=== PATIENT | female | born 1980 | race Caucasian/White ===

== ENCOUNTER 2017-10-27 17:00 | Outpatient (CLI) | payer MEDICAID, SELFPAY ==
[2017-10-27 17:36] VITALS: BMI 22.0
[2017-10-27] MEDS: Lactated Ringers 500 ML 999 ML IV (17:50)
[2017-10-27] MEDS: Betamethasone/Betamethasone 30 MG/5 ML Vial 12.5 MG IM (17:51)
[2017-10-27 18:21] LABS: Hematocrit 38.7 % (37-47); Hemoglobin 13.2 g/dl (12.0-15.0); Mean Corp Hgb Conc 34.1 g/gl (32-36); Mean Corpuscular Hgb 30.4 pg (27.0-32.0); Mean Corpuscular Volume 89.2 fL (81-99); Mean Platelet Vol. 10.7 fl (6.2-12.0); Platelet Count 184 K/mm3 (150-450); RBC Distribution Width CV 13.1 % (11.6-14.6); RBC Distribution Width SD 42.4 fl (35.1-43.9); Red Blood Count 4.34 M/mm3 (4.2-5.4); White Blood Count 10.2 K/mm3 (4.4-11.0)
--- NOTE | 2017-10-27 18:21 | OB.TRI.PN ---
Progress Notes Date of Service: 10/27/17 Progress Note: Presented to office with contractions that have been irregular since Friday. NST reactive in office with contractions every 7-14minutes. Cervical exam 1cm/40%/-4. To L&D for observation and rule out labor. Upon arrival to L&D patient stated contractions had slowed down. Worked today and last IC yesterday. Denies any vaginal bleeding or leakage of fluid. O: VE 1cm/40%/-4 1.5hr after last exam FHT 140, moderate variability accels, no decels, Category 1 TOCO: Irregular, 2 contractions in 2 minutes on monitor A: False Labor Category 1 FHT P: 1)1liter LR bolus 2) U/A and CBC 3) 1 dose of Celestone and repeat dose in 24 hr 4) FFN collected in office and sent to lab 5) Consulted and agrees with plan. Mindi Atkins CNM.
[2017-10-27 18:22] LABS: Scan Indicated on CBC? Y/N NO
--- NOTE | 2017-10-27 18:25 | OB.TRI.PN_ITS ---
Progress Notes Date of Service: 10/27/17 Progress Note: Presented to office with contractions that have been irregular since Friday. NST reactive in office with contractions every 7-14minutes. Cervical exam 1cm/40 %/-4. To L&D for observation and rule out labor. Upon arrival to L&D patient stated contractions had slowed down. Worked today and last IC yesterday. Denies any vaginal bleeding or leakage of fluid. O: VE 1cm/40%/-4 1.5hr after last exam FHT 140, moderate variability accels, no decels, Category 1 TOCO: Irregular, 2 contractions in 2 minutes on monitor A: False Labor Category 1 FHT P: 1)1liter LR bolus 2) U/A and CBC 3) 1 dose of Celestone and repeat dose in 24 hr 4) FFN collected in office and sent to lab 5) Consulted and agrees with plan. Mindi Atkins CNM.
[2017-10-27 19:13] LABS: Mucous, Urine 0 SEEN /hpf (<or=2+)
[2017-10-27 19:14] LABS: Color, Urine Yellow (Yellow); Glucose, Dipstick Normal (Normal); Ketone-Dipstick Negative (Negative); Leukocyte Esterase-Dipstick 25 /ul (Negative); Nitrite-Dipstick Negative (Negative); Occult Blood-Urine 50 /ul (Negative); Protein-Dipstick Negative (Negative); Urine Bilirubin Dipstick Negative (Negative); Urine Clarity Cloudy (Clear); Urine Urobilinogen 1 mg/dl (Normal)
[2017-10-27 19:32] LABS: Squamous Epithelial Cells - UA 0-5 SEEN /hpf (5-10)
[2017-10-27 19:33] LABS: Fine Granular Cast- Urine 0-5 SEEN /lpf (0-5)
[2017-10-27 19:34] LABS: Bacteria RARE /hpf (None Seen); Red Blood Cells-Urine 10-25 SEEN /hpf (0-5); White Blood Cells 0-5 SEEN /hpf (0-5)
[2017-10-27 19:36] LABS: Amorphous Sediment 1+
[2017-10-27] MEDS: Lactated Ringers 1,000 ML 150 ML IV (19:45)
[2017-10-27] MEDS: Terbutaline 1 MG/ML Vial 0.25 MG SC (23:45)
[2017-10-28] MEDS: NIFEdipine 10 MG Capsule PO ×2 (07:33→16:05)
[2017-10-28] MEDS: Acetaminophen 500 MG Tablet 1000 MG PO ×2 (08:44→17:18)
[2017-10-28] MEDS: Betamethasone/Betamethasone 30 MG/5 ML Vial 12 MG IM (17:40)
== END 2017-10-28 17:45 | disposition home or self-care (01) ==
LOC: WPOUT 17:10 → WP 17:11
PROVIDERS: Visit Provider Advanced Practice Midwife
DX: O47.9 False labor, unspecified (principal); Z3A.00 Weeks of gestation of pregnancy not specified
CPT/HCPCS: 96360; 96361 ×3; 59025; 59050; 81001; 85027; 96372; 99218; J7120; G0378; J0702

== ENCOUNTER → 2017-10-27 18:28 | Outpatient (CLI) | payer MEDICAID, SELFPAY ==
[2017-10-27 19:02] LABS: Fetal Fibronectin POSITIVE; Record Kit Lot#, fFN J7025
--- NOTE | 2017-10-28 18:13 | PCM.PN.BLA ---
Progress Note Patient w/ mild irreg ctxs today. No repeat cervical exam at this time due to not wanting to increase contractions and has been clinically stable all day. Second dose of betamethasone given. D/jassi home w/ f/u tomorrow in our office for MFM consult due to threatened labor in high risk multigravida at 27 weeks. Advanced maternal age. FHTs baseline-135 bpm, moderate variability, + accels 10x 10 bpm No decelerations, not reactive but appropriate for gestational age and category 1
== END ==
PROVIDERS: Visit Provider Advanced Practice Midwife
DX: O60.00 Preterm labor without delivery, unspecified trimester (principal); Z3A.00 Weeks of gestation of pregnancy not specified; O47.9 False labor, unspecified
CPT/HCPCS: 81001; 82731; 85027; J7120; J0702

== ENCOUNTER 2017-12-29 16:35 | Inpatient (IN) | payer MEDICAID, SELFPAY ==
[2017-12-29 16:54] VITALS: BMI 23.8
[2017-12-29] MEDS: Oxytocin 10 UNITS/ML Vial IM (16:55)
--- NOTE | 2017-12-29 17:07 | PCM.HP.OB ---
- Problem List (1) Active labor Status: Acute Qualifiers: Fetus number: single or unspecified fetus Qualified Code(s): O60.10X0 - labor with delivery, unspecified trimester, not applicable or unspecified (2) Precipitous delivery Status: Acute (3) Normal spontaneous vaginal delivery Status: Acute History Date of Admission: 12/29/17 Final MARCO: 01/24/18 Final MARCO Source: US <20 weeks Gestational age: 36 Weeks and 2 Days History of this : 37 year old female at 36w2d by 1st trimester U/S. Patient presented to L&D with SROM at 1545. Arrived on unit at 7cm with very quick progression to complete and delivery of female infant. OB Hx: Unplanned Advanced Maternal Age Allergies No Known Allergies Allergy (Verified 10/27/17 17:36) Current Medications Acetaminophen (Tylenol) 1,000 mg PO Q8H PRN PRN PRN Reason: MILD PAIN (-11/01)/Temp>99.6F Bisacodyl (Dulcolax) 10 mg RECTAL UD PRN PRN Reason: If no BM Dibucaine (Dibucaine) 1 applic TOPICAL TID PRN PRN; Protocol PRN Reason: Discomfort Hydrocortisone (Hytone) 1 applic TOPICAL TID PRN PRN; Protocol PRN Reason: Discomfort Lactated Ringer's () 1,000 mls @ 0 mls/hr IV .Q0M MAGALY PRN Reason: KVO Methylergonovine Maleate (Methergine) 0.2 mg IM X1 PRN PRN Reason: Excess bleeding/uterine atony Naproxen (Naprosyn) 250 - 500 mg PO Q8H PRN PRN PRN Reason: MILD PAIN (1-310) Ondansetron HCl (Zofran) 4 mg IV Q4H PRN PRN PRN Reason: Nausea Oxytocin (Pitocin) 10 units IM X1 MAGALY Senna/Docusate Sodium (Senokot-S, Katharine-Colace) 1 - 2 tablet PO DAILY PRN PRN PRN Reason: Constipation Simethicone (Mylicon) 80 mg PO PCHS PRN PRN Reason: Indigestion/Stomach pain Sodium Chloride () 5 - 15 ml IV UD PRN PRN Reason: SALINE FLUSH Alcohol: None Drug Use: none Number of Fetus(es): 1 Physical Exam Vitals: RPR negative Rubella Immune General: Alert, Oriented x3, No apparent distress Presentation: Cephalic Assessment/Plan Active and Suspected Problems Active labor (Acute) Precipitous delivery (Acute) Normal spontaneous vaginal delivery (Acute) A: Active Labor Precipitous Vaginal Delivery P: 1) Upon arrival patient delivered precipitously. See Vaginal delivery note 2) Admit to L&D. CBC, blood type and screen Mindi Atkins CNM
[2017-12-29 17:22] LABS: Hematocrit 42.8 % (37-47); Hemoglobin 14.5 g/dl (12.0-15.0); Mean Corp Hgb Conc 33.9 g/gl (32-36); Mean Corpuscular Volume 88.6 fL (81-99); Mean Platelet Vol. 11.4 fl (6.2-12.0); Platelet Count 167 K/mm3 (150-450); RBC Distribution Width CV 13.6 % (11.6-14.6); RBC Distribution Width SD 44.2 fl (35.1-43.9); Red Blood Count 4.83 M/mm3 (4.2-5.4); White Blood Count 12.6 K/mm3 (4.4-11.0)
--- NOTE | 2017-12-29 17:24 | PCM.OB.VAG ---
- Problem List (1) Active labor Status: Acute Qualifiers: Fetus number: single or unspecified fetus Qualified Code(s): O60.10X0 - labor with delivery, unspecified trimester, not applicable or unspecified (2) Precipitous delivery Status: Acute (3) Normal spontaneous vaginal delivery Status: Acute Vaginal Delivery Maternal Presentation: Active Labor, Spontaneous Rupture of Membranes Amniotic Membrane Rupture Type: Spontaneous Rupture of Membrane time: 1545 Amniotic Fluid Description: Clear Final MARCO: 01/24/18 Gestational age: 36 Weeks and 2 Days Date of Procedure: 12/29/17 Pre-Operative Diagnosis: Active Labor Post-Operative Diagnosis: Normal Spontaneous Vaginal Delivery Surgery/ Procedure Performed: Spontaneous Vaginal Delivery Type of Anesthesia: None Description of Procedure: Notified at 1645 that patient delivered vaginally. Patient arrived at 1635 and delivered at 1645. Patient with SROM at home at 1545. Upon arrival patient was 7cm and quickly progressed to complete with . Precipitous of viable female over intact perineum, delivered by VAISHALI Caceres Apgars 8,9. at 36w2d, arrived shortly after delivery. I arrived after delivery, on maternal chest with mother attempting to breastfeed. Umbilical cord clamped and cut by nursing staff. Pitocin 10 units IM given once, no IV access. Placenta delivered with gentle pressure/counter traction, intact, 3 vessel cord. Fundus firm and hemostasis achieved. EBL 200ml. Perineum inspected and revealed 3 vessel cord. Mother and baby stable. initiated. notified of delivery. Presentation: Vertex Placental Delivery Description: Spontaneous Placenta Disposition: [facility] Cord Vessel Description: 3 Vessels Cord Entanglement: None Estimated Blood Loss: 200ml A gender: Female (1 minute): 8 (5 minute): 9 Episiotomy Description: None Laceration: None Medications given after delivery: - - IM Pitocin
[2017-12-29 17:25] LABS: Scan Indicated on CBC? Y/N NO
--- NOTE | 2017-12-29 17:31 | OP.PCM_ITS ---
- Problem List (1) Active labor Status: Acute Qualifiers: Fetus number: single or unspecified fetus Qualified Code(s): O60.10X0 - labor with delivery, unspecified trimester, not applicable or unspecified (2) Precipitous delivery Status: Acute (3) Normal spontaneous vaginal delivery Status: Acute Vaginal Delivery Maternal Presentation: Active Labor, Spontaneous Rupture of Membranes Amniotic Membrane Rupture Type: Spontaneous Rupture of Membrane time: 1545 Amniotic Fluid Description: Clear Final MARCO: 01/24/18 Gestational age: 36 Weeks and 2 Days Date of Procedure: 12/29/17 Pre-Operative Diagnosis: Active Labor Post-Operative Diagnosis: Normal Spontaneous Vaginal Delivery Surgery/ Procedure Performed: Spontaneous Vaginal Delivery Type of Anesthesia: None Description of Procedure: Notified at 1645 that patient delivered vaginally. Patient arrived at 1635 and delivered at 1645. Patient with SROM at home at 1545. Upon arrival patient was 7cm and quickly progressed to complete with . Precipitous of viable female over intact perineum, delivered by VAISHALI Caceres Apgars 8,9. at 36w2d, arrived shortly after delivery. I arrived after delivery, on maternal chest with mother attempting to breastfeed. Umbilical cord clamped and cut by nursing staff. Pitocin 10 units IM given once , no IV access. Placenta delivered with gentle pressure/counter traction, intact , 3 vessel cord. Fundus firm and hemostasis achieved. EBL 200ml. Perineum inspected and revealed 3 vessel cord. Mother and baby stable. initiated. notified of delivery. Presentation: Vertex Placental Delivery Description: Spontaneous Placenta Disposition: [facility] Cord Vessel Description: 3 Vessels Cord Entanglement: None Estimated Blood Loss: 200ml A gender: Female (1 minute): 8 (5 minute): 9 Episiotomy Description: None Laceration: None Medications given after delivery: - - IM Pitocin
[2017-12-29] MEDS: Naproxen 250 MG Tablet PO (18:05)
[2017-12-29 19:48] VITALS: BP 133/83; PULSE 64; RESP 18; TEMP 36.6; O2SAT 97
[2017-12-30 00:30] VITALS: BP 125/79; PULSE 72; RESP 16; TEMP 36.7; O2SAT 99
[2017-12-30 04:05] VITALS: BP 113/49; PULSE 85; RESP 16; TEMP 36.6; O2SAT 97
[2017-12-30 08:00] VITALS: BP 119/87; PULSE 75; RESP 16; TEMP 36.1
[2017-12-30 11:43] VITALS: BP 113/78; PULSE 81; RESP 16; TEMP 36.9
--- NOTE | 2017-12-30 12:25 | PCM.PN.OB ---
Patient Problems: Active and Suspected Problems Active labor (Acute) Precipitous delivery (Acute) Normal spontaneous vaginal delivery (Acute) Subjective: Doing well per patient and nursing staff. Ambulating and taking PO without difficulty. Voiding and passing flatus. without difficulty. denies any headache, visual changes, chest pain, shortness of breath, leg pain, increased vaginal bleeding or clots. Planning D/C home tomorrow. - Physical Exam General: Alert, Oriented x3, Cooperative Lungs: Clear to auscultation, Normal air movement, No rhonchi, No wheeze Cardiovascular: Regular rate, Regular Rhythm, No murmurs Abdomen: Bowel Sounds Present, Soft, Non Tender, - - Fundus firm 2 below U Extremities: No edema, - - Briana's negative bilaterally Psych/Mental Status: Normal Affect, Appropriate Vital Signs Temp Pulse Resp BP Pulse Ox 98.4 F 81 16 113/78 97 12/30/17 11:43 12/30/17 11:43 12/30/17 11:43 12/30/17 11:43 12/30/17 04:05 Oxygen Delivery Method Room Air Weight: 134 lb 8 oz Body Mass Index (BMI) 23.8 Intake and Output for Last 24 Hours 12/28/17 12/29/17 12/30/17 23:59 23:59 23:59 Intake Total 200 / 200 Output Total 500 / 500 Balance -300 / -300 Laboratory Tests Past 24 Hrs 12/29/17 12/29/17 17:10 17:10 WBC 12.6 H RBC 4.83 Hgb 14.5 Hct 42.8 MCV 88.6 MCH 30.0 MCHC 33.9 RDW 13.6 RDW Differential 44.2 H Plt Count 167 MPV 11.4 Blood Type A POSITIVE Antibody Screen NEGATIVE Medical Necessity - Tobacco Use Smoking Status: Never smoker Assessment/Plan Active and Suspected Problems Active labor (Acute) Precipitous delivery (Acute) Normal spontaneous vaginal delivery (Acute) A: PPD #1 , precipitous P: 1) Routine PP care. 2) Planning D/C home tomorrow
--- NOTE | 2017-12-30 12:30 | DCINST_ITS ---
Discharge Diet: No Restrictions Discharge Activity: Return to Normal Activity, May not drive while taking narcotic pain medications., May Shower May resume sexual activity in: 6-8 weeks Weight Bearing Status: Weight bearing as tolerated Call your doctor if your incision/area has: Continuous Slow Oozing, Sudden Increased Bleeding, Increased Pain/ Swelling, Increased Redness, Foul Smelling Discharge Call your doctor if you observe: Fever of 101 or Higher, Coldness, Increased Pain, Numbness or Tingling, Change in Color, Inability to urinate, Inability to have a bowel movement, Using more than one pad per hour, Shortness of breath, Dizziness, Fainting spells, Swelling in the ankles, Chest pain, Prolonged hiccoughing, Increased palpitations (irregular heartbeat), Calf discomfort, Uncontrolled pain Additional Instructions: If you experience any of the following, contact your healthcare provider. * Bleeding that soaks a pad every hour for 2 hours * Fever 100.4 or higher * Unrelieved incision or abdominal pain * Swelling, redness, discharge or bleeding from your incision or episiotomy site * Your incision begins to separate * Problems urinating (including inability to urinate or burning while urinating) . * Visual changes * Severe headache * Flu-like symptoms * Pain or redness in one of both of your breasts * Pain, warmth, tenderness or swelling in your legs, especially the calf area * Frequent nausea and vomiting * Symptoms of depression or anxiety If you experience any of the following, call 911 or go to the nearest Emergency Room. * Chest pain * Problems breathing * Seizure activity * Partial or complete paralysis of a body part, slurred speech, weakness or drooping of the face, or a sudden inability to walk or hold your balance Allergies/Adverse Reactions: Allergies No Known Allergies Allergy (Verified 10/27/17 17:36) Medications to take at Discharge Vits [Prenatabs FA] 1 tablet PO DAILY 10/27/17 Please Follow Up With: Mindi Atkins CNM When: Call to make an appointment with your doctor in 6 weeks. If you had elevated Blood Pressure or 4th degree laceration you will need to be seen in 2 weeks. Primary Care Physician: Care Physician,No Primary [Primary Care Provider] -
[2017-12-30] MEDS: Prenatal Vits Tablet 1 TABLET PO (13:20)
[2017-12-30 16:30] VITALS: BP 144/84; PULSE 72; RESP 16; TEMP 37.3
[2017-12-30 20:00] VITALS: BP 130/79; PULSE 68; RESP 16; TEMP 36.6
[2017-12-31] MEDS: Naproxen 250 MG Tablet PO (00:33)
[2017-12-31 02:00] VITALS: BP 117/44; PULSE 66; RESP 17; TEMP 37.1
[2017-12-31 08:38] VITALS: BP 130/85; PULSE 76; RESP 16; TEMP 36.7; O2SAT 98
--- NOTE | 2017-12-31 08:40 | PCM.PN.OB ---
Patient Problems: Active and Suspected Problems Active labor (Acute) Precipitous delivery (Acute) Normal spontaneous vaginal delivery (Acute) Subjective: Patient sitting up in bed reporting no issues today. Patient desires discharge to home. Reports is going well, baby latching well without difficulty. Objective: Nipples without cracks and blisters FF midline 2FB below umbilicus perineum intact, no vulvar edema Scant rubra lochia - Physical Exam General: Alert, Oriented x3, Cooperative HEENT: Atraumatic, Normocephalic Neck: Supple Lungs: Normal air movement Cardiovascular: Regular rate, No murmurs Abdomen: Soft, Non Tender, Non-Distended Extremities: No edema, Capillary Refill Less than 3 Seconds Skin: No rashes, No breakdown Musculoskeletal: No Tenderness to Palpation of Joints or Extremities Neurological: Cranial nerves II-XII grossly intact Psych/Mental Status: Normal Affect, Appropriate, Alert and oriented to time, place, person, mood and affect Vital Signs Temp Pulse Resp BP Pulse Ox 98.8 F 66 17 117/44 L 97 12/31/17 02:00 12/31/17 02:00 12/31/17 02:00 12/31/17 02:00 12/30/17 04:05 Oxygen Delivery Method Room Air Weight: 134 lb 8 oz Body Mass Index (BMI) 23.8 Intake and Output for Last 24 Hours 12/29/17 12/30/17 12/31/17 23:59 23:59 23:59 Intake Total 200 / 200 Output Total 500 / 500 Balance -300 / -300 Medical Necessity - Tobacco Use Smoking Status: Never smoker Assessment/Plan Active and Suspected Problems Active labor (Acute) Precipitous delivery (Acute) Normal spontaneous vaginal delivery (Acute) A: 37 y/o s/p , PPD #2, Uncomplicated Course P: 1) Discharge to home pending discharge 2) Teaching Done 3) RTC to [facility] women's Health Office at 6 weeks PP. Paulette Waller CNM
--- NOTE | 2017-12-31 12:00 | CASEMGMT ---
Social Work Note - Labor and Delivery Unit Social Work Assessment completed after referral from the operations support manager for resources. was unplanned and patient/mother of baby (MOB) lost job last week. Chart reviewed and then met with MOB in room. . Refer to documentation below for further details. Housing Situation: ANNABELLE lives alone in own home, along with oldest daughter Stacy Ko. MOB plans to take Michelle Ko to this home. MOB reports home situation is safe and adequate. Patient's parent/guardian status: MOB is 37 year old single female. Father of baby (FOB) is reported to be Devin Poon, age 34, and who was born in [place] and then adopted by an [place] family. MOB reports was with FOB off and on for 3.5 years but broke up a couple of months ago. Pyote is the first child for MOB and FOB together. MOB has Stacy, age 7, from another relationship. FOB has a 12 year old and 9 year old from a previous relationship and then a 5 year old from another previous relationship. Medical History: ANNABELLE is G2, P1 to 2 after delivering Michelle. MOB sought care at 8 weeks gestation. Michelle delivered at 36 weeks and was a quick delivery. weighed 5 pounds 12 ounces, apgars 8 and 9 at 1 and 5 minutes of life. Educational Status: MOB graduated high school and has some college experience. No reported issues with reading or writing. Financial Status: MOB was just let go from job of 11.5 years last week. MOB reports has started process for unemployment. Infant Supplies: MOB reports to have a car seat, pack-n-play, rock-n-play, clothing, diapers, and wipes for baby. MOB plans to breast feed. Childcare/Caregiver(s): MOB. MOBs mother will also help out. Transportation: MOB has transportation. Programs/Agencies Involved: MOB has Medicaid through [facility] and [facility]. No other agency involvement. Children Services/Legal Issues: MOB denies any current or past involvement with children services. Behavioral Health Issues: Mental Health- MOB denies any past treatment or diagnosis of depression or anxiety. MOB reports does experience some anxiety related to MOBs mother, who MOB shares is at times overstepping boundaries in MOBs role as a mother. MOB endorses that may have had some mild depression this , related to stress MOB was experiencing. MOB denies any past or current thoughts, plans, or intent for suicide. MOB reports suicide as never been an option. Substance Use History - MOB denies any alcohol use during , or since knowledge of . MOB admits to some marijuana usage prior to knowledge of , that had stopped, and then last week did smoke a joint with someone who brought to MOB's employment. MOB reports years ago smoked marijuana regularly, but this was years ago, and use now is more recreationally. MOB denies intent to use marijuana again. MOB reports there was a 6 month time frame in college where MOB used cocaine and ecstasy. MOB reports left college to get self together and never used again after that. Drug Screens - MOB did have a positive drug screen on 06-18-17. No further testing noted. Infants urine drug screen is negative, meconium is pending. Family/Social Stressors: MOB is advanced maternal age, was unplanned. MOB reports had many emotions upon finding out about , so this was rough for MOB. MOB reports FOB was not supportive during , that FOB tends to run when things get hard. MOB reports FOB left MOB a couple of months ago. MOB reports one of [facility] primary supports, MOBs mom, is there for MOB and helpful in practical ways but creates stress for MOB as MOB reports her mother tends to overstep boundaries when it comes to parenting MOBs oldest child (not following [facility] rules). MOB reports was also let go of job last week. Support Systems: MOB reports her mother for practical support and to have a few friends as well. MOB reports to have some friends that can talk to. MOB also reports that feels can call OBGYN about things if MOB starts to feel depressed or anxious in the period. ASSESSMENT: MOB pleasant and cooperative with social work visit. MOB held normal eye contact, conversation expansive and hyper verbal at times. MOB cried intermittently during visit, but at appropriate times, when the subject revolved around stressors. MOB reports to feel prepared for the baby at home and will have help for several days at home going. MOB receptive to resource information and applying for assistance that is available. MOB has WIC and Medicaid, plans to look into food assistance and has applied for unemployment; mom educated to escalante assistance as well through [facility]. Screened MOB for anxiety and depression. On the Generalized Anxiety Scale at this time MOB is scoring a 5, showing low to no anxiety over the last two weeks and on the PHQ9 depression scale a 5, showing minimal depression. MOB agrees that if symptoms discussed today intensify to call physician and/or counseling referral. MOB asked for this writers contact information should MOB have questions or concerns after home going. MOB denies any suicidal thoughts, plans, intent, nor any thoughts of harm to others. MOB focused on care of baby, and older daughter, and reports to have a velez and connection with the baby. Note, MOB educated that should the meconium drug screen results come back then a children services referral would need to be made. MOB accepted information without incident though admits the idea of children services causes worry and anxiety. PLAN: MOB and baby discharging to home today. MOB given resource packet of [facility], Help Me Grow, moms support group, shaken baby/tips to soothe baby, and safe sleeping. MOB provided with food pantry and meal lists. Provided with mood and anxiety disorder packet, including online resources. Information on local mental health providers including [facility]. Provided MOB with this underwriter mortgage loan's card should MOB have questions about information provided. No other services requested or indicated. -ROSALINA Valles, SANDRO
--- NOTE | 2017-12-31 13:00 | CASEMGMT ---
- PHQ9 & NORBERTO Screening Labor and Delivery Unit Screening completed on 12-31-17, on the day of discharge from hospital. PHQ9 DEPRESSION SCALE (answers per patient report, as to how as felt over the last 2 weeks prior to delivery) ~ Not at All Several Days More than Half the Days Nearly Every Day 1. Little interest or pleasure in doing things. x 2. Feeling down, depressed or hopeless. x 3. Trouble falling asleep, staying asleep, or sleeping too much. x 4. Feeling tired or having little energy. x 5. Poor appetite or overeating. x 6. Feeling bad about yourself - or that youre a failure or have let yourself or your family down. x 7. Trouble concentrating on things, such as reading the newspaper or watching television. x 8. Moving or speaking so slowly that other people could have noticed. Or, the opposite - being so fidgety or restless that you have been moving around a lot more than usual. x 9. Thoughts that you would be better off or of hurting yourself in some way. x SCORE IS 5 OF 27, SHOWING MINIMAL DEPRESSION. Patient reports little interested, trouble staying asleep, tired, and increase of appetite. Patient endorses belief that symptoms present are a combination of the end of as well as mood. Patient denies thoughts, plans, or intent to harm self or others. Patient reports great importance of being present for children and also in role as a single mother who needs to be present for her children. GENERALIZED ANXIETY SCALE - 7 ITEM SCALE ((answers per patient report, as to how as felt over the last 2 weeks prior to delivery) Not at all sure Several days Over half the days Nearly everyday 1. Feeling nervous, anxious, or on edge x 2. Not being able to stop or control worrying x 3. Worrying too much about different things x 4. Trouble relaxing x 5. Being so restless that its hard to sit still x 6. Becoming easily annoyed or irritable x 7. Feeling afraid as if something awful might happen x SCORE IS 5 OF 21, SHOWING LITTLE TO NO ANXIETY. Patient reports tendency to like things in order and control, so often patient worries about things. Patient endorses that worry has been increased since losing job last week but has already taken steps to get unemployment until can find a job again. Patient reports main source of anxiety is patient's mother, that while patient's mother is a great practical support to patient, patient is at time challenged by having to keep firm boundaries with patient's mother. Discussed coping skills, taking breaks, fresh air, movement, and importance of consistency in setting boundaries. Talked about action plan should anxiety increase while patient's mother is helping at the home. Also discussed possible benefit of counseling for increased and unbiased support to patient, assistance with building coping and stress management skills. Patient reports will consider, and should symptoms arise will call OBGYN. Patient also took this sql report writer's card to call if has questions about mental health resources offered today. See previous note this date for patient's psychosocial history and home going plan. Mental health resources reviewed and provided to patient today. -EVELYN Valles, SURVEY COORDINATOR
[2017-12-31 13:32] VITALS: BP 127/84; PULSE 73; RESP 16; TEMP 36.7; O2SAT 98
== END 2017-12-31 14:20 | disposition home or self-care (01) | DRG 373 ==
PROVIDERS: Advanced Practice Midwife; Admitting Provider Obstetrics & Gynecology; Visit Provider Obstetrics & Gynecology
DX: O60.14X0 Preterm labor third trimester with preterm delivery third trimester, not applicable or unspecified (principal); Z3A.36 36 weeks gestation of pregnancy; Z37.0 Single live birth; O09.513 Supervision of elderly primigravida, third trimester
CPT/HCPCS: 59050; 85027; 86850; 86900; 99218; G0378

== ENCOUNTER 2018-01-08 07:30 | Outpatient (CLI) | payer MEDICAID, SELFPAY ==
[2018-01-08 07:49] VITALS: BMI 21.6
[2018-01-08 08:03] LABS: Hematocrit 42.1 % (37-47); Hemoglobin 14.2 g/dl (12.0-15.0); Mean Corp Hgb Conc 33.7 g/gl (32-36); Mean Corpuscular Hgb 29.5 pg (27.0-32.0); Mean Corpuscular Volume 87.5 fL (81-99); Platelet Count 243 K/mm3 (150-450); RBC Distribution Width SD 41.7 fl (35.1-43.9); Red Blood Count 4.81 M/mm3 (4.2-5.4); White Blood Count 15.4 K/mm3 (4.4-11.0)
[2018-01-08 08:05] LABS: Scan Indicated on CBC? Y/N NO
[2018-01-08] MEDS: Lactated Ringers 1,000 ML 999 ML IV (08:08)
--- NOTE | 2018-01-08 08:13 | OB.TRI.NOTE ---
History of Present Illness Date of Service: 01/08/18 Was patient seen by the physician?: Yes Reason For Visit: RO PRE ECLAMPSIA, left back pain Date of Service: 01/08/18 Final MARCO Source: US <20 weeks History of Present Illness: 37yo s/p 9 days ago reports that she woke up this morning on 01/08/18 with severe left side flank pain and nausea. pt denies sick contact, no Diarrhea, vomiting, fevers. pt is breast feeding. No headaches or visual changes. Allergies No Known Allergies Allergy (Verified 10/27/17 17:36) - Pertinent Past Medical History Pertinent Past Medical History: Denies h/o Kidney stones Physical Exam General: Alert, Oriented x3, - - writhing around in bed due to pain Abdomen: Soft, Non Tender, Non-Distended, - - + LEFT CVA tenderness appreciated Extremities:: No edema Impression/Plan 37yo PPD#9- elevated BP, severe left flank pain- LIKELY NEPHROLITHIASIS 1) BP likely elevated due to pain- but will check PRE E LABS 2) urine to be sent 3) Demerol ordered for pain 4) IVF 5) Renal U/S
[2018-01-08 08:22] LABS: AST(SGOT) 18 U/L (15-37); Alanine Aminotransfer ALT/SGPT 22 U/L (13-56); Creatinine, Serum 0.77 mg/dL (0.55-1.02); EST Glomerular Filtration Rate 91 mL/min (>60); Est Glom Filt Rate - Afr Amer 110 mL/min (>60); Estimated Creatinine Clearance 84.36 ml/min; Uric Acid 3.7 mg/dL (2.6-6.0)
--- NOTE | 2018-01-08 08:55 | NURSING ---
0808 dr recio into see pt; iv started and demerol given for pain; pt developed a large hive above iv site; demerol not effective for pain pain still a 10; Dr Recio on unit made aware orders received for Morphine 1 mg reviewed lab results and BP 152/82 no s/s of pre e; pt to be transferred back to ER for evaluation of kidney stone; report called to ER and pt Transferred at 0845- iv site infiltrated and leaking not able to give Morphine iv site dc'ed prior to transport;
--- NOTE | 2018-01-08 09:01 | NURSING ---
0825 pulse 60 and temp 97.5 resp 22 pt still writhing in pain
[2018-01-08 09:21] LABS: Prothrombin Time (Protime)PT. 12.7 SECONDS (11.7-14.9)
[2018-01-08 09:22] LABS: Partial Thromboplast Time 30.1 Seconds (24.1-36.2)
[2018-01-08 10:12] LABS: Protein, Urine (Random) 24.1 mg/dL (<11.9); Protein:Creat Ratio 177 mg/g CRE (0-200)
== END 2018-01-08 08:45 | disposition home or self-care (01) ==
LOC: WPOUT 07:47 → WP 07:49
PROVIDERS: Visit Provider Obstetrics & Gynecology
DX: R10.9 Unspecified abdominal pain (principal); R03.0 Elevated blood-pressure reading, without diagnosis of hypertension
CPT/HCPCS: 82565; 82570; 84156; 84450; 84460; 84550; 85027; 85610; 85730; J7120

== ENCOUNTER 2018-01-08 08:54 | Emergency (ER) | payer MEDICAID, SELFPAY ==
[2018-01-08 08:55] VITALS: BP 160/90; PULSE 59; RESP 18; TEMP 36.3; O2SAT 95; BMI 19.7
--- NOTE | 2018-01-08 08:55 | CT_ITS ---
STUDY: CT ABDOMEN AND PELVIS WITHOUT CONTRAST REASON FOR EXAM: Female, 37 years old. Left flank pain. Recent childbirth. RADIATION DOSAGE (If Supplied By Facility): CTDIvol = ( 6.74 ) mGy, DLP = ( 312.30 ) mGycm TECHNIQUE: Transaxial images were obtained from the dome of the diaphragm to the symphysis pubis without oral contrast, and without intravenous contrast. Sagittal and coronal images were reconstructed. Individualized dose optimization techniques were used for this CT. COMPARISON: None. FINDINGS: The visualized lung bases are unremarkable. The visualized portions of the heart are within normal limits. Normal liver. Normal gallbladder and extrahepatic biliary system. Normal spleen. Normal pancreas. Normal bilateral adrenal glands. There is a 5.8 mm calculus in the upper midportion of the right kidney as well as a 2 mm calculus. A 2 mm calculus is also seen in the lower pole cancer. Right kidney. Punctate calcification in the upper pole calyx of the left kidney. Tiny calculi are also seen in the lower pole calyx of the left kidney. The largest measures 3 mm. There is enlargement of the left kidney with evidence of mild to moderate degree of left hydronephrosis. This is due to a 2.7 mm calculus at the left ureterovesical junction as it enters the urinary bladder. There is a small hiatal hernia. Normal small intestine. Normal colon. The appendix is visualized and appears normal. Normal abdominal aorta. Normal inferior vena cava. Normal retroperitoneum. Normal urinary bladder. Enlarged uterus due to recent childbirth. Small bilateral benign-appearing inguinal lymph nodes. Normal abdominal wall. Normal osseous structures. There is straightening of the normal lumbar lordosis. CT/Abdomen/Pelvis without Cont IMPRESSION: Bilateral intrarenal calculi. Moderate degree of left hydronephrosis and hydroureter due to a 2.7 mm calculus at the left ureterovesical junction as it enters the urinary bladder. Electronically Signed: Matt Ramirez MD at 9:37 EDT Tel [phone], Service support ,
[2018-01-08] MEDS: 0.9% Normal Saline 1,000 ML 250 ML IV (09:03)
[2018-01-08] MEDS: Morphine 4 MG/ML Syringe IV (09:03)
[2018-01-08] MEDS: Ketorolac 30 MG/ML Syringe IV (09:03)
[2018-01-08] MEDS: Ondansetron 4 MG/2 ML Vial IV (09:03)
--- NOTE | 2018-01-08 09:03 | ED.VISSUMM ---
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 Atkins. She is 10 days status post vaginal delivery. She reports that she was healing normally and has had decreasing lochia without odor. At 545 this morning she had the abrupt onset of a left flank pain. She describes it as a constant, waxing and waning pain that is dull. It is 10 out of 10 severity. Does radiate around to the left side of her abdomen. Is worsened by nothing relieved by nothing. She reports the pain is made her nauseated. She has not vomited. It is also made her sweaty. She denies any diarrhea. Her last bowel movement was yesterday. No melena or hematochezia. No dysuria or frequency. Physical Examination: Vitals: Stable. Afebrile. General: Well-nourished and well-developed. Head: Normocephalic atraumatic. Neck: Supple, no lymphadenopathy. No JVD. Nontender. Cardiovascular: Regular rate and rhythm. No murmurs. Respiratory: No respiratory distress. Clear to auscultation bilaterally. Abdominal: Soft, nontender, nondistended, normal bowel sounds. No guarding, rebound, or peritoneal signs. Back: Mild left CVA tenderness. Extremities: Nontender, no edema. Skin: Normal color, no rash. Neurologic: Alert and oriented ?3. Cranial nerves II through XII are intact. Normal strength and sensation. Psych: Normal affect. Test Results: Prior to arrival the patient had labs obtained from L&D that showed a normal creatinine, AST/ALT, uric acid. CBC showed a white count of 15.4 with a normal hemoglobin. Urinalysis was obtained in the emergency department and shows a 25 red blood cells. No evidence of infection. CT flank shows moderate left hydronephrosis/ureter due to 2.7 mm calculus at the UVJ. Emergency Department Course and Treatment: Patient had an IV placed. She was given Toradol, Zofran, and morphine IV. Her pain has essentially resolved. I suspect she has passed the stone into her bladder while here. Treatment Plan: Patient will be discharged naproxen and [place] for pain. Follow-up with Dr. Jasmine as needed. Disposition: To home in improved and stable condition. Impression: 1. Left ureterolithiasis. This note was generated with [employer] dictation software. It may contain incorrect words, spelling, and punctuation that were not noted in review of the chart prior to signing ED Disposition - Plan for ED Patient: Chief Complaint: Flank Pain Instructions: ED Stone Renal W Colic Prescriptions: Hydrocodone/Acetaminophen [[place] 5-325 Tablet] 1 - 2 each PO 4X/DAY PRN PRN 3 Days #12 tablet PRN Reason: Pain Naproxen [Naprosyn] 500 mg PO BID #14 tablet Referrals: Jossue Jasmine MD [STAFF PHYSICIAN] - As Needed
[2018-01-08 10:40] LABS: Bacteria 0 SEEN /hpf (None Seen); Color, Urine Yellow (Yellow); Glucose, Dipstick Normal (Normal); Ketone-Dipstick Negative (Negative); Mucous, Urine 0 SEEN /hpf (<or=2+); Urine Bilirubin Dipstick Negative (Negative); Urine Clarity Clear (Clear)
[2018-01-08 10:41] LABS: Leukocyte Esterase-Dipstick 100 /ul (Negative); Nitrite-Dipstick Negative (Negative); Occult Blood-Urine 250 /ul (Negative); Protein-Dipstick 15 mg/dl (Negative); Red Blood Cells-Urine 10-25 SEEN /hpf (0-5); Squamous Epithelial Cells - UA 0-5 SEEN /hpf (5-10); Urine Urobilinogen Normal (Normal); White Blood Cells 0-5 SEEN /hpf (0-5)
[2018-01-08 11:01] VITALS: BP 112/89; PULSE 71; RESP 16; O2SAT 98
[2018-01-08 11:12] VITALS: BP 118/74; PULSE 92; RESP 16; O2SAT 98
== END 2018-01-08 11:13 | disposition home or self-care (01) ==
PROVIDERS: Emergency Provider Emergency Medicine
DX: O90.89 Other complications of the puerperium, not elsewhere classified (principal); N13.2 Hydronephrosis with renal and ureteral calculous obstruction; R10.9 Unspecified abdominal pain; R03.0 Elevated blood-pressure reading, without diagnosis of hypertension
CPT/HCPCS: 36415; 74176; 81001; 82565; 82570; 84156; 84450; 84460; 84550; 85027; 85610; 85730; 96361; 96374; 96375; 99218; 99283; J7030; J7120; A4216; G0378; J2405